=== PATIENT | male | born 1960 | race Caucasian/White ===

== ENCOUNTER 2016-11-09 03:17 | Observation (INO) ==
[2016-11-09] MEDS ORDERED: Nitroglycerin 0.4 MG TAB.SUBL SL PRN (03:36)
--- NOTE | 2016-11-09 03:40 | Emergency Department Note ---
Disposition Clinical Impression: Chest pain Qualifiers: Chest pain type: unspecified Qualified Code(s): R07.9 - Chest pain, unspecified Disposition: Admitted As Inpatient Condition: Fair Referrals: NO,PCP [Primary Care Provider] - Forms: ED Satisfaction Letter Time of Disposition: 04:43 Chest Pain HPI - General Chief Complaint: ED Chest Pain Stated Complaint: cp Time Seen by Provider: 11/09/16 03:22 Source: patient Limitations: no limitations Vital Signs Reviewed: Yes Nursing Notes Reviewed: Yes - History of Present Illness HPI Narrative: Patient is a 56-year-old male who presents to [facility] ED with a chief complaint of chest pain. States the symptoms started around 3 AM while he was working. 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 States while in the vehicle he went over a few bumps and then after lifting some blocks felt left-sided burning pain that radiated into his left shoulder. Denies any nausea, vomiting, fever or chills. States he did break out in a sweat when this initially happened. When EMS arrived, they gave him 4 baby aspirin and a sublingual nitroglycerin. Patient states his chest pain improved quite a bit after receiving the initial nitroglycerin. He is still feeling some pressure and a little bit of ache in his shoulder. Denies any prior cardiac history. Medical history only significant for hypertension. He is a former smoker, no diagnosis of COPD or home oxygen use. 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 Denies: nausea, vomiting, dyspnea, fever, cough Treatments prior to arrival chest pain: aspirin, nitroglycerin - Related Data Allergies Allergy/AdvReac Type Severity Reaction Status Date / Time No Known Allergies Allergy Verified 11/09/16 03:20 All systems ED: reviewed and negative except as stated. Chest Pain PMH - Past Medical History Medical history: Reports: hypertension Psychiatric history: Reports: no psych history - Social History Smoking Status: Never smoker Alcohol use: Reports: none Drug use: Reports: none Physical Exam - General Limitations: no limitations General appearance: alert, in no apparent distress - Head Head exam: atraumatic, normocephalic, normal inspection - Eye Eye exam: Present: normal appearance, PERRL, EOMI - ENT ENT exam: normal exam, normal oropharynx, mucous membranes moist - Neck Neck exam: Present: normal inspection, full ROM, trachea midline - Chest Chest inspection: Present: normal inspection, symmetric chest wall rise - Respiratory Respiratory exam: Present: wheezes - Cardiovascular Cardiovascular exam: Present: regular rate, normal rhythm, normal heart sounds - Abdominal Exam Abdominal exam: Present: soft, Non-Tender. Absent: tenderness, distention, guarding, rebound, rigidity - Extremities Exam Extremities exam: Present: normal inspection, full ROM. Absent: tenderness, pedal edema - Back Exam Back exam: Present: normal inspection, full ROM. Absent: tenderness - Neurological Exam Neurological exam: Present: alert, oriented X3 - Psychiatric Psychiatric exam: Present: normal affect, normal mood - Skin Skin exam: Present: warm, dry, intact, normal color Course Course Narrative: Patient seen and examined. Chest pain with diaphoresis relieved with nitroglycerin. We will complete nitroglycerin trial. Cardiopulmonary workup initiated. Patient does have some bilateral wheezing along with oxygen saturation of 92-94%. However he states he is not having any difficulty breathing. - Reevaluation(s) Reevaluation #1: Patient's lab work appears unremarkable. Troponin is 0.00. Chest x-ray also unremarkable. Patient still feeling some chest discomfort though markedly improved from before. On reexamination, the patient's lungs sound completely clear. I spoke with patient about his results. Due to some risk factors and a concerning story for angina, we will go ahead and admit for chest pain, rule out ACS. I spoke with hospitalist and he has been accepted by Dr. Beckett. Time: 04:45 Vital Signs Temperature 98.0 F 11/09/16 03:18 Pulse Rate 59 11/09/16 03:18 Respiratory Rate 16 11/09/16 03:18 Blood Pressure 118/79 11/09/16 03:18 O2 Sat by Pulse Oximetry 93 L 11/09/16 03:18 Temperature 98.0 F 11/09/16 03:18 Pulse Rate 58 11/09/16 03:44 Respiratory Rate 16 11/09/16 03:44 Blood Pressure 116/87 11/09/16 03:44 O2 Sat by Pulse Oximetry 92 L 11/09/16 03:44 Oxygen Delivery Oxygen Delivery Room Air Chest Pain - Medical Records Medical records reviewed: Yes I reviewed the patient's medical records. - Lab Data Lab results reviewed: Yes I reviewed the patient's lab results. Result diagrams: 11/09/16 03:57 11/09/16 03:57 Lab Results 11/09/16 11/09/16 11/09/16 Range/Units 03:57 03:57 03:57 WBC 5.2 (4.3-11.1) K/mcL RBC 4.89 (4.19-5.50) M/mcL Hgb 14.8 (12.9-16.9) g/dL Hct 42.8 (37.5-50.1) % MCV 87.5 (83.0-100.0) fL MCH 30.3 (28.0-33.3) pg MCHC 34.6 (31.6-35.5) g/dL RDW 12.4 (11.5-14.5) % Plt Count 175 (140-400) K/mcL MPV 9.9 (9.4-12.4) fL Immature Gran % 0.2 (0-4) % Seg Neutrophils % 54.8 % Lymphocytes % 33.5 % Monocytes % 9.4 % Eosinophils % 1.5 % Basophils % 0.6 % Neutrophils # 2.9 (1.6-8.9) K/mcL Lymphocytes # 1.8 (0.6-4.6) K/mcL Monocytes # 0.5 (0.0-1.3) K/mcL Eosinophils # 0.1 (0.0-0.6) K/mcL Basophils # 0.0 (0.0-0.2) K/mcL PT 12.3 H (9.4-12.1) Seconds INR 1.1 APTT 27.2 (26.0-36.0) Seconds Sodium 137 (136-145) mEq/L Potassium 3.8 (3.5-4.5) mEq/L Chloride 104 (98-109) mEq/L Carbon Dioxide 25 (19-29) mEq/L BUN 13 (8-26) mg/dL Creatinine 1.00 (0.72-1.25) mg/dL Est GFR ( Amer) > 60 (> 60) Est GFR (Non-Af Amer) > 60 (> 60) BUN/Creatinine Ratio 13 (6-26) Glucose 101 H (70-99) mg/dL Calculated Osmolality 284 (280-300) Calcium 8.7 (8.6-10.8) mg/dL Troponin I (0-0.03) ng/mL 11/09/16 Range/Units 03:57 WBC (4.3-11.1) K/mcL RBC (4.19-5.50) M/mcL Hgb (12.9-16.9) g/dL Hct (37.5-50.1) % MCV (83.0-100.0) fL MCH (28.0-33.3) pg MCHC (31.6-35.5) g/dL RDW (11.5-14.5) % Plt Count (140-400) K/mcL MPV (9.4-12.4) fL Immature Gran % (0-4) % Seg Neutrophils % % Lymphocytes % % Monocytes % % Eosinophils % % Basophils % % Neutrophils # (1.6-8.9) K/mcL Lymphocytes # (0.6-4.6) K/mcL Monocytes # (0.0-1.3) K/mcL Eosinophils # (0.0-0.6) K/mcL Basophils # (0.0-0.2) K/mcL PT (9.4-12.1) Seconds INR APTT (26.0-36.0) Seconds Sodium (136-145) mEq/L Potassium (3.5-4.5) mEq/L Chloride (98-109) mEq/L Carbon Dioxide (19-29) mEq/L BUN (8-26) mg/dL Creatinine (0.72-1.25) mg/dL Est GFR ( Amer) (> 60) Est GFR (Non-Af Amer) (> 60) BUN/Creatinine Ratio (6-26) Glucose (70-99) mg/dL Calculated Osmolality (280-300) Calcium (8.6-10.8) mg/dL Troponin I 0.00 (0-0.03) ng/mL - Radiology Data Radiology results reviewed: Yes I reviewed the patient's radiology results. Chest X-Ray 11/09/16 03:22 IMPRESSION: Negative portable chest. D/ / Eladio Marrero MD / Eladio Marrero MD Interpreting Provider: Eladio Marrero MD - EKG Data EKG attestation: Yes I reviewed and interpreted this EKG. EKG results narrative: EKG done at 321 shows normal sinus rhythm with a rate of [address] elevation or depression. Left axis deviation. Inverted T-wave in lead 3 and aVF. No changes from prior EKG done 07/26/2011 Heart Score - Score History: Moderately Suspicious EKG: Non Specific repolarisation Disturbance Age: 45-65 Risk Factors: 1-2 risk factors Troponin: Less than normal limit HEART Score Total: 4 Attestation Statement - Attestation Attestation: I personally interviewed and examined this patient and my medical decision- making was reviewed and discussed with the ED Resident Physician, Dr. Gonzalez. I agree with the documented findings, disposition and treatment plan as documented. Patient is a 56-year-old white male with history of hypertension who presents to emergency department tonight with chest pain. Patient denies any prior cardiac evaluation in the past. Patient given aspirin and nitroglycerin prior to arrival by EMS with significant improvement in his symptoms on arrival to the emergency department and vital signs stable on arrival. Patient was in no distress and no signs of respiratory distress. Continue nitroglycerin trial in the ED and patient now resting comfortably, pain-free, with stable vitals. EKG showed no acute findings and initial troponin was negative. Chest x-ray clear. Will admit patient for chest pain rule out ACS, patient will be admitted for further evaluation and treatment.
[2016-11-09 04:04] LABS: Basophils % 0.6 %; Eosinophils # 0.1 K/mcL (0.0-0.6); Eosinophils % 1.5 %; Hematocrit 42.8 % (37.5-50.1); Hemoglobin 14.8 g/dL (12.9-16.9); Immature Granulocytes % 0.2 % (0-4); Lymphocytes # 1.8 K/mcL (0.6-4.6); Lymphocytes % 33.5 %; Mean Corpuscular HGB Conc 34.6 g/dL (31.6-35.5); Mean Corpuscular Hemoglobin 30.3 pg (28.0-33.3); Mean Corpuscular Volume 87.5 fL (83.0-100.0); Mean Platelet Volume 9.9 fL (9.4-12.4); Monocytes # 0.5 K/mcL (0.0-1.3); Monocytes % 9.4 %; Neutrophils # 2.9 K/mcL (1.6-8.9); Platelet Count 175 K/mcL (140-400); Red Blood Count 4.89 M/mcL (4.19-5.50); Red Cell Distribution Width 12.4 % (11.5-14.5); Segmented Neutrophils % 54.8 %
[2016-11-09 04:09] LABS: INR 1.1; Prothrombin Time 12.3 Seconds (9.4-12.1)
[2016-11-09 04:12] LABS: Activated Partial Thrombo Time 27.2 Seconds (26.0-36.0)
[2016-11-09 04:17] LABS: BUN/Creatinine Ratio 13 (6-26); Blood Urea Nitrogen 13 mg/dL (8-26); Calcium 8.7 mg/dL (8.6-10.8); Carbon Dioxide 25 mEq/L (19-29); Chloride 104 mEq/L (98-109); Glucose 101 mg/dL (70-99); Osmolality,Calculated 284 (280-300); Potassium 3.8 mEq/L (3.5-4.5); Sodium 137 mEq/L (136-145); eGFR For African Americans > 60 (> 60); eGFR For Non-African Americans > 60 (> 60)
--- NOTE | 2016-11-09 06:11 | Internal Med History&Physical ---
Date of Encounter: 11/09/16 Time of Encounter: 06:08 Assessment and Plan (1) Chest pain Status: Acute Would admit patients under observation. rule out acute coronary syndrome. We will keep patient on aspirin. Heart rate runs in 50s 60s. Serial cardiac markers. Cardiology service to see patient. There is no mediastinal widening on chest x-ray. Qualifiers: Chest pain type: unspecified Qualified Code(s): R07.9 - Chest pain, unspecified (2) Hypertension Status: Acute Continue blood pressure medications Qualifiers: Hypertension type: essential hypertension Qualified Code(s): I10 - Essential (primary) hypertension Internal Medicine - H&P: HPI Chief complaint: chest pain History of present illness: Mr. Mayorga is a 56 year old male with a history of hypertension, 30 pack year smoking history presents to the emergency room with chest pain. 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 He denies any prior similar episodes. No fever or chills. He has noncategorical for the heart before. He denies lifting heavy objects. He is not hypertensive Past Med Surg Social Fam HX - Past Medical History Medical history: hypertension Psychiatric history: no psych history - Social History Smoking Status: Never smoker Smokeless Tobacco Status: No Alcohol use: none Drug use: none - Family History Father Adopted: No Age: 79 Family Member Ethnicity: Non- Living Status: Still Living Hx Family Cardiac Disorders: Yes (Open heart surgery, HTN) Hx Family Respiratory Disorders: Yes (SOB) Hx Family Cancer: No Hx Family GI Disorders: No Hx Family Genitourinary Disorders: No Hx Family Endocrine Disorder: No Hx Family Musculoskeletal Disorders: No Hx Family Neuromuscular Disorders: No Hx Family Neurologic Disorders: No Hx Family HEENT Disorders: No Hx Family Autoimmune Disorders: No Hx Family Reproductive Disorders: No Hx Family Psychosocial Disorders: No Hx Family Medical Disorders: No Mother Age: 76 Living Status: Still Living Hx Family Endocrine Disorder: Yes Internal Medicine - H&P: Meds Aspirin [Lo-Dose Aspirin EC] 81 mg PO DAILY #30 tablet. 11/09/16 [Rx] Escitalopram [Lexapro] 10 mg PO DAILY 11/09/16 [History] Lisinopril/Hydrochlorothiazide [Zestoretic 20-25 mg Tablet] 1 tab PO DAILY 11/09 [History] Nitroglycerin 0.4 mg SL Q5MIN PRN #30 tab.subl 11/09/16 [Rx] Trazodone HCl 100 mg PO HS 11/09/16 [History] Allergies No Known Allergies Allergy (Verified 11/09/16 03:20) All Systems PM: A 10-system review of systems was performed and is negative for pertinent findings except as documented above in the HPI. Review of systems: 10 point systems is negative except for HPI - Constitutional Vitals: Temp Pulse Resp BP Pulse Ox 98.0 F 58 18 120/79 94 L 11/09/16 03:18 11/09/16 05:14 11/09/16 05:14 11/09/16 05:14 11/09/16 05:14 Exam: Gen.: patient is alert and oriented times 3 not in distress Tena: normal S1 S2 additional sounds remembers chest: clear abdomen: soft non tender lower extremity: lax calf muscles, no swelling Internal Med - H&P Results - Labs CBC & Chem 7: 11/09/16 03:57 11/09/16 03:57 Labs: Short CBC 11/09/16 Range/Units 03:57 WBC 5.2 (4.3-11.1) K/mcL Hgb 14.8 (12.9-16.9) g/dL Hct 42.8 (37.5-50.1) % Plt Count 175 (140-400) K/mcL Neutrophils # 2.9 (1.6-8.9) K/mcL BMP 11/09/16 03:57 Sodium 137 Potassium 3.8 Chloride 104 Carbon Dioxide 25 BUN 13 Creatinine 1.00 Glucose 101 H Calcium 8.7 Cardiac Enzymes 11/09/16 Range/Units 03:57 Troponin I 0.00 (0-0.03) ng/mL - Impressions ITS Impressions Chest X-Ray 11/09/16 03:22 IMPRESSION: Negative portable chest. D/ / Eladio Marrero MD / Eladio Marrero MD Interpreting Provider: Eladio Marrero MD
[2016-11-09] MEDS ORDERED: Aspirin 325 MG TABLET PO SCH (09:00)
--- NOTE | 2016-11-09 09:21 | Cardiology Consult Note ---
Date of Encounter: 11/09/16 Time of Encounter: 09:21 Assessment and Plan (1) Chest pain Current Visit: Yes Status: Acute Troponin negative x 1. EKG with no acute ST changes. NSR. HE 60 bpm. Continue to trend troponin. If troponin negative proceed with stress test in am. Check TTE. Cardiac risk factors include HTN, tobacco use, and family history. Qualifiers: Chest pain type: unspecified Qualified Code(s): R07.9 - Chest pain, unspecified (2) Hypertension Current Visit: Yes Status: Acute B/p acceptable. Qualifiers: Hypertension type: essential hypertension Qualified Code(s): I10 - Essential (primary) hypertension Discussion w patient/family: The assessment and plan as outlined above was discussed with the patient and/or family members who expressed understanding and agreement. All questions were answered. Thank you for involving us in the care of your patient. Please call with any questions. History of Present Illness Consult date: 11/09/16 Requesting physician: Edu Beckett Consult reason: Chest pain Chief complaint: Chest pain, diaphoresis History of present illness: Mr. Mayorga is a 56 year old male with a history of hypertension and previous tobacco use who presented with chest pain. 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 His pain was described as a left sided pressure and "donny horse" pain in his left arm. He c/o breaking out in a cold sweat. His symptoms lasted about 30 min before spontaneously resolving. 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 He admits to intermittent midsternal chest pain occurring at rest 2-3 times a month. Cardiology consulted for further evaluation. No previous history of CAD. Past Med Surg Social Fam HX - Past Medical History Medical history: hypertension Psychiatric history: no psych history - Past Surgical History Surgical History: cholecystectomy - Social History Smoking Status: Former smoker Packs per day: 30/pk yr Smokeless Tobacco Status: No Alcohol use: none Drug use: none - Family History Father Adopted: No Age: 82 Family Member Ethnicity: Non- Living Status: Still Living Hx Family Cardiac Disorders: Yes (Open heart surgery, HTN) Hx Family Respiratory Disorders: Yes (SOB) Hx Family Cancer: No Hx Family GI Disorders: No Hx Family Genitourinary Disorders: No Hx Family Endocrine Disorder: No Hx Family Musculoskeletal Disorders: No Hx Family Neuromuscular Disorders: No Hx Family Neurologic Disorders: No Hx Family HEENT Disorders: No Hx Family Autoimmune Disorders: No Hx Family Reproductive Disorders: No Hx Family Psychosocial Disorders: No Hx Family Medical Disorders: No Medications and Allergies Lisinopril-HCTZ 10-12.5 [Prinzide 10-12.5] 2 each PO DAILY 11/09/16 [History] Allergies No Known Allergies Allergy (Verified 11/09/16 03:20) All Systems Review: A 10-system review of systems was performed and is negative for pertinent findings except as documented above in the HPI. Physical Examination Vital Signs, Last 4 Hours BP BP BP 11/09/16 08:45 119/72 125/78 131/82 General: Conversant, No Apparent Distress HEENT: Atraumatic, Normocephaly, Mucus Membranes Moist Neck: No JVD, Normal carotid pulses Cardiac: Reg Rate and Rhythm, Normal S1 and S2, No Murmur Lungs: Normal Breath Sounds, No Wheeze, Rales, Rhonchi Neuro: Alert and responsive, No focal deficits noted Abdomen: Soft, Non-Tender Skin: No rashes noted on visualized skin Musculoskeletal: No Chest Wall Tenderness Extremities: No Clubbing, No Cyanosis, No Edema, Normal Pulses Results 11/09/16 03:57 11/09/16 03:57 Chest X-Ray 11/09/16 03:22 IMPRESSION: Negative portable chest. D/ / Eladio Marrero MD / Eladio Marrero MD Interpreting Provider: Eladio Marrero MD - Imaging and Cardiology Chest Xray: report reviewed - EKG Interpretation EKG results cardiology: personally reviewed (SR with non-specifc t wave abnormality unchanged from 2011 EKG.) Consult Discharge Plan - Plan Referrals: NO,PCP [Primary Care Provider] -
--- NOTE | 2016-11-09 13:53 | Electrocardiograph Report ---
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
--- NOTE | 2016-11-09 14:27 | Nuclear Medicine Stress Report ---
Exercise Nuclear Stress Name: Kolby Mayorga Date of Study: 11/09/2016 Date: 1960 Ht: 72.0 in Medical Record#: [id number] Age: 56 Wt: 220.0 lb Gender: Male Order #: [id number] Location: [facility] Room: [facility] Supervising Provider: Filipe Quiroz CNP Reading Physician: Zoila Prater DO Ordering Physician: Lea Craft CNP Primary Care Physician: Radha Ochoa CNP Stress Technologist: Vasu Mina, EDMUNDO, [facility] Scientist/Engineer: Ramana Crockett Indications: Chest Pain Impression: Perfusion imaging was negative for ischemia or infarct. Apical thinning artifact. Exercise ECG was non-diagnostic for ischemia due to baseline ST abnormalities. Exercise capacity was fair. Normal hemodynamic response. Patient had no chest pain with stress. Occasional PVCs during exercise. Gated EF = >70%. History: Hypertension Stress Test Summary: Stress Test Type: Treadmill Protocol: Marlon Baseline Information: Initial Heart Rate: 54 Blood Pressure: 122/74 Stress Information: Stress Time: 6 min 24 sec Test Terminated Due to (primary): Dyspnea Maximum Blood Pressure: 160/76 Maximum Heart Rate: 152 Percent Maximum Heart Rate Achieved: 92 Double Product: [id number] METS Reached: 7 Nuclear Summary: SPECT myocardial perfusion imaging using Tc99m Sestamibi given intravenously was performed at rest and following cardiac stress testing. The resting images were obtained following initial dose of 11.8 mCi. Following stress an additional dose of 33.6 mCi was given at peak exercise or 30 seconds post regadenoson infusion. Medication Given: Time Medication Dose Units Route Findings: Stress Note * Sinus bradycardia at baseline with nonspecific ST abnormalities. * Patient had no chest pain during stress. * The exercise capacity was fair. * Occasional PVCs noted during stress. * Peak exercise ECG demonstrates 0.5 to 1mm of flat to upsloping ST depression. Findings are nondiagnostic due to baseline abnormality. Hemodynamic responses * Normal hemodynamic responses to exercise. Study Quality * Study quality was fair. Gated EF > 70% * Gated EF > 70%. Left Ventricle * The left ventricle is not dilated. TID * No evidence of transient ischemic dilatation. Lung Uptake * There is no evidence of increase lung uptake. NORMALS * Normal wall motion. PERFUSION * There is a small sized mild-moderate fixed perfusion defect involving the apical inferior segment and apex. Wall motion is normal in this area. Findings represent artifact, most likely apical thinning. * Hyperperfusion, hot spot of the anterolateral wall may be breast attenuation. * Other areas demonstrate normal rest and stress perfusion. Updated by Zoila Prater on 11/09/2016 2:21:20 PM electronically signed on 11/09/2016 2:22:53 PM with status of Final
[2016-11-09] MEDS ORDERED: *HR* Heparin 5,000 UNIT/ML VIAL SQ SCH (18:00)
[2016-11-09] MEDS ORDERED: MethylPREDNISolone 40 MG/ML VIAL IVP ONE (18:39)
--- NOTE | 2016-11-09 18:45 | Internal Med Progress Note ---
Date of Encounter: 11/09/16 Time of Encounter: 18:41 - Time Spent With Patient A/P Chest pain Pruritus will check D dimer add steroids , discussed with cardiology surgeon/president awaiting ECHO , staff stated itis not done yet , cardiology will read at home if done .stress test negative , discussed with patient and family , He want to wait ECHO to be done - Subjective Interval history: patient is complaining of left sided chest burning like sensation worse with taking deep breath. No dyspnea on exertion - Constitutional Vitals: Temp Pulse Resp BP Pulse Ox 97.8 F 65 16 112/68 97 11/09/16 13:39 11/09/16 13:39 11/09/16 13:39 11/09/16 13:39 11/09/16 13:39 - Neck Neck exam general surgery: Present: supple, trachea midline. Absent: lymphadenopathy - Respiratory Respiratory exam: Present: CTAB. Absent: accessory muscle use, rales, rhonchi, wheezes - Cardiovascular Cardiovascular exam: Present: RRR, +S1, +S2. Absent: diastolic murmur, gallop, rubs, systolic murmur - GI/Abdominal GI/Abdominal exam: Present: normal bowel sounds, soft, no peritoneal signs. Absent: distended, tenderness - Extremities Exam Extremities exam: Present: warm, radial pulses palpable and symetrical. Absent : calf tenderness, cyanotic, pedal edema - Neurological Exam Neurological exam: Present: CN II-XII intact, oriented X3, no focal deficits. Absent: pronater drift, facial droop, speech deficit Internal Medicine: Result - Labs CBC & Chem 7: 11/09/16 03:57 11/09/16 03:57 Labs: Cardiac Enzymes 11/09/16 Range/Units 10:15 Troponin I 0.00 (0-0.03) ng/mL - ABG Interpretation ABG results: PT/INR, D-dimer PT 12.3 Seconds (9.4-12.1) H 11/09/16 03:57 Consult Discharge Plan - Plan Referrals: NO,PCP [Primary Care Provider] - Prescriptions: Nitroglycerin 0.4 mg SL Q5MIN PRN #30 tab.subl PRN Reason: Chest Pain Aspirin [Lo-Dose Aspirin EC] 81 mg PO DAILY #30 tablet.
[2016-11-09 18:52] VITALS: BP 117/74
--- NOTE | 2016-11-09 18:53 | Discharge Summary ---
Date of Encounter: 11/09/16 Time of Encounter: 18:50 - Discharge Medications Prescriptions: Nitroglycerin 0.4 mg SL Q5MIN PRN #30 tab.subl PRN Reason: Chest Pain Aspirin [Lo-Dose Aspirin EC] 81 mg PO DAILY #30 tablet. Home Medications: Aspirin [Lo-Dose Aspirin EC] 81 mg PO DAILY #30 tablet. 11/09/16 [Rx] Escitalopram [Lexapro] 10 mg PO DAILY 11/09/16 [History] Lisinopril/Hydrochlorothiazide [Zestoretic 20-25 mg Tablet] 1 tab PO DAILY 11/09 [History] Nitroglycerin 0.4 mg SL Q5MIN PRN #30 tab.subl 11/09/16 [Rx] Trazodone HCl 100 mg PO HS 11/09/16 [History] Allergies/Adverse Reactions: Allergies No Known Allergies Allergy (Verified 11/09/16 03:20) Procedures/tests Complete & Pending: Procedures Performed prior 72 hours Category Date Time Status NM effie perf SPECT multi [NM] Routine Exams 11/09/16 11:10 Taken EV echocardiogram Routine Y 11/09/16 09:37 Ordered SP exercise nuclear stress Routine Y 11/09/16 11:09 Completed Date of admission: 11/09/16 08:07 Primary care physician: PCP NO Discharging clinician: Екатерина Ventura - Patient Status Disposition: Home, Self-Care Functional capacity at discharge: independent ambulation Overall status at discharge: patient is progressing back to baseline - Discharge Instructions Instructions: Prednisone (By mouth), Chest Pain (DC), Chronic Hypertension (DC) Follow Up With: NO,PCP [Primary Care Provider] - - Diet and Activity Activity: return to work once cleared by your PCP/specialist Diet: low fat, low cholesterol, low salt diet Hospital course: Mr. Mayorga is a 56 year old male with a history of hypertension, 30 pack year smoking history presents to the emergency room with chest pain. 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 He denies any prior similar episodes. No fever or chills. Patient was admitted to the hospital.cardiac enzymes were negative , No acute EKG No dyspnea noted overnight. Cardiac stress test no evidence of ischemia. Ejection fraction on cardiac stress test was normal. Patient was seen later again. Patient stated that his left side chest pain burning like sensation worse when he takes deep breath. One dose of steroid order for patient for his pleuritic chest pain. Patient stated that he is walking up to 4 miles daily without any problems prior to this episode.Discussed with patient life style modification and follow up with cardiology as outpatient - Time Spent with Patient Total time spent providing and/or coordinating discharge services: - Constitutional Vitals: Temp Pulse Resp BP Pulse Ox 97.8 F 65 16 112/68 97 11/09/16 13:39 11/09/16 13:39 11/09/16 13:39 11/09/16 13:39 11/09/16 13:39 General appearance: Absent: no acute distress - Head Head exam: Present: atraumatic, normocephalic - Neck Neck exam general surgery: Present: supple, trachea midline. Absent: lymphadenopathy - Respiratory Respiratory exam: Present: CTAB. Absent: accessory muscle use, rales, rhonchi, wheezes - Cardiovascular Cardiovascular exam: Present: RRR, +S1, +S2. Absent: diastolic murmur, gallop, rubs, systolic murmur - GI/Abdominal GI/Abdominal exam: Present: normal bowel sounds, soft, no peritoneal signs. Absent: distended, tenderness - Extremities Exam Extremities exam: Present: warm, radial pulses palpable and symetrical. Absent : calf tenderness, cyanotic, pedal edema
--- NOTE | 2016-11-10 08:12 | ECHO - Doppler Report ---
Echocardiogram Name: Kolby Mayorga Date of Study: 11/09/2016 Date: 1960 Ht: 72.0 in Medical Record#: [id number] Age: 56 Wt: 214.0 lb Gender: Male BSA: 2.19 Order #: [id number] Location: [facility] Room #: [id number] Reading Physician: Jack Baltazar MD, [facility] Assistant To The Director: Livier Elias Ordering Physician: Filipe Quiroz CNP Primary Physician: Radha Ochoa CNP Indications: Chest pain Impressions: Normal LV systolic function, LVEF 65%. No significant valvular dysfunction. Unable to estimate RVSP due to lack of TR jet. Left Ventricular Wall Motion: Rest Echo Findings All wall segments showed normal motion. Findings: Study Quality * Technically adequate exam. ECG Findings * Sinus rhythm and sinus bradycardia. Left Ventricle * Normal LV systolic function, LVEF 65%. * Normal LV chamber size and wall thickness. * Normal left ventricular diastolic function. Right Ventricle * Normal right ventricular size and function. Left Atrium * Normal left atrial size. Right Atrium * Normal right atrial size. Aorta * Normally sized aortic root. Pericardium * There is a trivial pericardial effusion present. IVC * Normal IVC dimensions and inspiratory collapse. Aortic Valve * Trileaflet aortic valve. * No aortic stenosis. * No aortic regurgitation. * Trace aortic regurgitation. Mitral Valve * Normal mitral valve structure. * No mitral stenosis. * Trace mitral regurgitation. Tricuspid Valve * Normal tricuspid valve structure. * No tricuspid stenosis. * Trace tricuspid regurgitation. * Unable to estimate RVSP due to lack of TR jet. Pulmonic Valve * Pulmonic valve is not well visualized. * No pulmonic stenosis. * No pulmonic regurgitation. History Hypertension Years 30 Packs 1.5 Family History of CAD 10/15/2013 a Previous Echo was performed. Measurements: BP: 117/ 74 2D Normal Values RVIDd: 2.30 cm IVSd: .90 cm 0.6 - 1.0 cm LVIDd: 4.80 cm 3.7 - 5.6 cm LVPWd: .90 cm 0.6 - 1.1 cm LVIDs: 2.50 cm 1.5 - 3.6 cm AO: 3.30 cm < 4.0 cm %FS: 47.90 cm >25 % LA volume: 53 Mitral Valve Peak E:.83 m/sec Peak A:.82 m/sec E/A Ratio:1 Updated by Jack Baltazar MD, [facility] on 11/10/2016 8:07:53 AM electronically signed on 11/10/2016 8:08:17 AM with status of Final Wall Motion [place]: 1=Normal, 2=Hypokinesis, 3=Akinesis, 4=Dyskinesis, 5=Aneurysmal, 6=Hyperkinetic, X=Not Visualized (Blank)=Missing
[2016-11-11 17:30] LABS: CK-BB (CK isoenzymes) 0 % (0-0); CK-MB (CK isoenzymes) 0 % (0-4); CK-MM (CK-isoenzymes) 100 % (96-100)
[2016-11-12 20:21] LABS: CK Total (Ck Isoenzymes) 146 U/L (20-200)
== END 2016-11-09 21:40 | disposition home or self-care (01) ==
LOC: 3BNU 03:17 → EMEROO 03:17 → 3BNU 07:26
PROVIDERS: ADMIT Hospitalist; ATTEND Nurse Practitioner Family